=== PATIENT | female | born 1960 | race Two or more races ===

== ENCOUNTER 2020-10-03 19:50 | Emergency (ER) | payer OTHER ==
[~2020-10-03] VITALS: Ht 162.6 cm; Wt 108.9 kg
[2020-10-03] MEDS ORDERED: PERCOCET (20:57)
[2020-10-03] MEDS ORDERED: PREDNISONE 20 MG. (20:58)
[2020-10-03] MEDS ORDERED: HUMIRA 40 MG (20:59)
[2020-10-03] MEDS ORDERED: ENDOCET 10-3251 EACH (20:59)
[2020-10-03] MEDS ORDERED: TIROSINT75 MCG (21:00)
[2020-10-03] MEDS ORDERED: FORTAMET500 MG (21:00)
[2020-10-03] MEDS ORDERED: NEURONTIN300 MG PO (21:20)
[2020-10-03] MEDS ORDERED: KETO10TA2 PO (21:20)
[2020-10-03] MEDS ORDERED: FAMCICLOVIR500 MG PO (21:20)
== END 2020-10-03 21:53 | disposition home or self-care (01) ==
LOC: ER 19:50
DX: B02.9 Zoster without complications (principal)